=== PATIENT | male | born 1985 | race Caucasian/White ===

== ENCOUNTER 2017-09-10 05:29 | Emergency (ER) | payer OTHER ==
[2017-09-10] MEDS: IBUPROFEN 600 MG TAB PO (07:54)
== END 2017-09-10 09:00 | disposition home or self-care (01) ==
LOC: M ED 05:29
DX: M25.571 Pain in right ankle and joints of right foot (principal); Z88.7 Allergy status to serum and vaccine
CPT/HCPCS: 73630